=== PATIENT | male | born 1960 | race Two or more races ===

== ENCOUNTER 2020-09-13 10:13 | Inpatient (IN) | payer OTHER ==
[~2020-09-13] VITALS: Ht 175.3 cm; Wt 83.5 kg
[2020-09-13] MEDS: ASCORBIC ACID 500 MG TAB PO SCH (09:00)
[2020-09-13] MEDS: ATORVASTATIN 20 MG TAB PO SCH (09:00)
[2020-09-13] MEDS: ASPIRIN 81MG ENTERIC TABLET PO SCH (09:00)
[2020-09-13] MEDS: MULTIVITAMINS/MINERALS THERAP 1 TAB PO SCH (09:00)
[2020-09-13] MEDS: VITAMIN D 1,000 INTERNATIONAL UNITS TABLET PO SCH (09:00)
[2020-09-13] MEDS: ACYCLOVIR 200 MG CAPSULE PO SCH (09:00)
[2020-09-13] MEDS ORDERED: ACYC1CAP20 PO (10:45)
[2020-09-13] MEDS ORDERED: ATOR1TAB21 PO (10:45)
[2020-09-13] MEDS ORDERED: ASPI81TA26 PO (10:45)
[2020-09-13] MEDS ORDERED: IBUPROFEN 600MG TAB PO ONE (11:10)
[2020-09-13] MEDS ORDERED: NS 1,000 ML IV ONE ×2 (11:15→13:10)
[2020-09-13 12:03] LABS: BASO % 0.2 % (0.0-1.0); EOS % 0.2 % (0.0-3.0); HEMATOCRIT 47.2 % (42.0-52.0); HEMOGLOBIN 15.9 g/dl (13.5-17.5); LYMPH # 0.5 10^3/uL (1.5-5.0); LYMPH % 2.8 % (24.0-44.0); MEAN CORPUSCULAR HEMOGLOBIN 31.3 pg (27.0-33.0); MEAN CORPUSCULAR HGB CONC 33.7 g/dl (32.0-36.5); MEAN CORPUSCULAR VOLUME 92.9 fl (80.0-96.0); MONO # 1.2 10^3/uL (0.0-0.8); MONO % 6.5 % (2.0-8.0); NEUTROPHILS # 16.6 10^3/uL (1.5-8.5); NEUTROPHILS % 89.8 % (36.0-66.0); PLATELET COUNT, AUTOMATED 205 10^3/uL (150-450); RED BLOOD COUNT 5.08 10^6/uL (4.30-6.10); WHITE BLOOD COUNT 18.4 10^3/uL (4.0-10.0)
[2020-09-13 12:25] LABS: ALBUMIN 3.6 GM/DL (3.2-5.2); ALT/SGPT 30 U/L (12-78); BILIRUBIN,DIRECT 0.5 MG/DL (0.0-0.2); BILIRUBIN,TOTAL 1.2 MG/DL (0.2-1.0); LIPASE 115 U/L (73-393)
[2020-09-13] MEDS ORDERED: cefTRIAXone SOD 2 GM in D5W MINI-BAG PLUS 50 ML IV ONE (13:20)
--- NOTE | 2020-09-13 13:42 | REP ---
INDICATION: cough/ fever COMPARISON: None. TECHNIQUE: PA/Lateral FINDINGS: Lungs: Clear, no infiltrate. Heart: Normal in size. Mediastinum: Mediastinal silhouette unremarkable. Pleural angles: Unremarkable.. Bones and soft tissues: Unremarkable. IMPRESSION: No acute pulmonary disease. <Electronically signed by Jaziel Whitman > 09/13/20 [id number]
--- NOTE | 2020-09-13 14:43 | REP ---
INDICATION: abnormal liver enzymes. COMPARISON: None. TECHNIQUE: Real-time sonographic evaluation of right upper quadrant performed. FINDINGS: The gallbladder demonstrates no evidence of intraluminal sludge or calculi, wall thickening or pericholecystic fluid. There is no intrahepatic or extrahepatic biliary dilatation, common bile duct measures 4 mm in maximum diameter. There is diffuse heterogeneous increased echotexture of the liver compatible with diffuse fibrofatty infiltration. Pancreas is not optimally visualized due to overlying bowel gas, particularly in the region of the pancreatic tail, but the visualized portions are grossly unremarkable. The right kidney demonstrates no hydronephrosis, with a normal size of 12.3 cm in length. There is a cyst in the lower pole the right kidney 5 mm in diameter.No free fluid is seen. IMPRESSION: Diffuse fibrofatty infiltration of the liver. Subcentimeter cyst right kidney. Otherwise negative right upper quadrant ultrasound. <Electronically signed by Jaziel Whitman > 09/13/20 1973
[2020-09-13 14:45] LABS: CPK CREATINE PHOSPHOKINASE 125 U/L (39-308)
[2020-09-13] MEDS ORDERED: ACETAMINOPHEN 325 MG TAB PO ONE (15:05)
[2020-09-13 15:57] LABS: HEPATITIS B SURFACE ANTIGEN NEGATIVE (NEGATIVE)
[2020-09-13] MEDS ORDERED: VITA500C24 PO (16:07)
[2020-09-13] MEDS ORDERED: VITMTA PO (16:07)
[2020-09-13] MEDS ORDERED: OMEG10002 PO (16:07)
[2020-09-13] MEDS ORDERED: D31000TA2 PO (16:07)
[2020-09-13] MEDS ORDERED: ACYC1TAB PO (16:07)
[2020-09-13 16:24] LABS: HEPATITIS B CORE ANTIBODY IGM NEGATIVE (NEGATIVE); HEPATITIS C VIRUS ABY INDEX < 0.0 INDEX (<0.8)
[2020-09-13 16:27] LABS: HEPATITIS A ANTIBODY IGM NEGATIVE (NEGATIVE)
[2020-09-13] MEDS ORDERED: MAALOX 30 ML SUSP *UDC PO PRN (17:30)
[2020-09-13] MEDS ORDERED: MOM 30ML SUSPENSION UDC PO PRN (17:30)
[2020-09-13 18:58] LABS: MONO SCRN NEGATIVE (NEGATIVE)
--- NOTE | 2020-09-13 19:08 | REPVR ---
PROCEDURE INFORMATION: Exam: CT Abdomen And Pelvis Without Contrast Exam date and time: 09/13/2020 5:40 PM Age: 60 years old Clinical indication: Fever; Additional info: Fever, dry cough TECHNIQUE: Imaging protocol: Computed tomography of the abdomen and pelvis without contrast. Radiation optimization: All CT scans at this facility use at least one of these dose optimization techniques: automated exposure control; mA and/or kV adjustment per patient size (includes targeted exams where dose is matched to clinical indication); or iterative reconstruction. COMPARISON: GALLBLADDER US 09/13/2020 2:21 PM FINDINGS: Lungs: Semi-solid parenchymal infiltrates in the right middle, right and left lower lobes. Findings consistent with multifocal pneumonitis of any etiology. Liver: Normal. No mass. Gallbladder and bile ducts: Normal. No calcified stones. No ductal dilation. Pancreas: Normal. No ductal dilation. Spleen: Normal. No splenomegaly. Adrenal glands: There is bilateral adrenal hyperplasia. Kidneys and ureters: Inflammatory changes demonstrated in both perinephric spaces, a finding which may be chronic. Clinical correlation to exclude acute and inflammation/infection suggested. Stomach and bowel: Mild diverticulosis is present in the distal colon. No diverticulitis. Appendix: No evidence of appendicitis. Intraperitoneal space: Unremarkable. No free air. No significant fluid collection. Vasculature: Unremarkable. No abdominal aortic aneurysm. Lymph nodes: Unremarkable. No enlarged lymph nodes. Urinary bladder: Unremarkable as visualized. Reproductive: The prostate gland demonstrates moderate hyperplasia. Bones/joints: Mild central spinal stenosis L3-L4, [id number] central spinal stenosis L4-L5. Bulging annulus L5-S1 without neural compromise. Soft tissues: Small left inguinal hernia with surrounding inflammation. Clinical correlation to exclude incarceration suggested. IMPRESSION: 1. Semi-solid parenchymal infiltrates in the right middle, right and left lower lobes. Findings consistent with multifocal pneumonitis of any etiology. 2. There is bilateral adrenal hyperplasia. 3. Inflammatory changes demonstrated in both perinephric spaces, a finding which may be chronic. Clinical correlation to exclude acute and inflammation/infection suggested. 4. Moderate prostatic hyperplasia. 5. Mild diverticulosis is present in the distal colon. No diverticulitis. 6. Small left inguinal hernia with surrounding inflammation. Clinical correlation to exclude incarceration suggested. Electronically signed by: Tio Rajput On 09/13/2020 19:07:45 PM
--- NOTE | 2020-09-13 19:13 | REPVR ---
PROCEDURE INFORMATION: Exam: CT Chest Without Contrast; Diagnostic Exam date and time: 09/13/2020 5:40 PM Age: 60 years old Clinical indication: Cough and fever; Additional info: Fever, dry cough TECHNIQUE: Imaging protocol: Diagnostic computed tomography of the chest without contrast. Radiation optimization: All CT scans at this facility use at least one of these dose optimization techniques: automated exposure control; mA and/or kV adjustment per patient size (includes targeted exams where dose is matched to clinical indication); or iterative reconstruction. COMPARISON: PA Chest, 2 view PA, Lat 09/13/2020 1:18 PM FINDINGS: Lungs: Semi-solid and solid parenchymal opacities demonstrated in the central part of the right middle lobe, medial basilar segment and posterior segments of the right lower lobe, posteromedial basal segments of the left lower lobe. Findings most consistent with multifocal pneumonitis. Remaining lungs appear clear. Pleural spaces: Mild pleural thickening both lung bases. Heart: Unremarkable. No cardiomegaly. No pericardial effusion. Aorta: Unremarkable. No aortic aneurysm. Lymph nodes: Unremarkable. No enlarged lymph nodes. Bones/joints: The spine demonstrates mild degenerative changes. Soft tissues: Unremarkable. IMPRESSION: Semi-solid and solid parenchymal opacities demonstrated in the central part of the right middle lobe, medial basilar segment and posterior segments of the right lower lobe, posteromedial basal segments of the left lower lobe. Findings most consistent with multifocal pneumonitis. Electronically signed by: Tio Rajput On 09/13/2020 19:12:27 PM
--- NOTE | 2020-09-13 21:18 | HPEPDOC ---
[facility] Medical History & Physical Date of Admission Sep 13, 2020 Date of Service: Sep 13, 2020 Attending Physician: NOAH HILL MD History and Physical CHIEF COMPLAINT: Fever, malaise, poor oral intake HISTORY OF PRESENT ILLNESS: Parminder is a pleasant relatively healthy 60yo male w/ notable PMHx of dyslipidemia, herpes simplex virus on daily valacyclovir, chronic lumbago with spondylosis, farsightedness, and recent bilateral great toe onychomycosis, who presented to the [facility] ED on 09/13/2020 with a chief complaint of fever over the past 3 days with associated malaise, night sweats, chills, intermittent headache, and overall poor oral intake. Patient reports his symptoms began duri ng the overnight of Sunday-Sunday (09/10 into 09/11) when his girlfriend reported he was "burning up" overnight while she slept next to him. He felt a little bit tired during the morning on Sunday and by noon felt "beat" with "no energy." He got into bed and tried to sleep. Around 7 PM on Sunday he took two, 200 mg tablets of Aleve. During the overnight of Sunday into Sunday, he had significant night sweats and had a home oral temperature of 102.5. Repeat temperature improved to 98.6. As the overnight continued into the white washer piler, a repeat temperature again was increased at 1-1.6. 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 During the afternoon he tried to eat some salad but really had no significant appetite and did not eat much. This morning, he called his [facility] clinic nurse who advised he to present to the ED. Patient denies any recent significant change in his medication regimen, sick contacts, travel other then to [place], and has no pets. Patient reports earlier this month (around 08/30/2020) seeing [facility] for some upper abdominal discomfort that moved superiorly into the chest. He was given 5 days worth of cetirizine and told to take Tums after meals which he said seemed to help things a bit. Other than that, patient denies any recent illnesses. Of relevant note, the patient reports that on Sunday and Sunday of last week he was working underneath a mobile home as part of his job responsibilities without any mask and was crawling on dry dirt. He also on Sunday was involved in digging a ditch with both [place] and [place]. 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 For the past 17 years he has worked for his own company called [employer] and over the course of those 17 years has only worked in two new homes; as such, he routinely works in older homes and could be exposed to some noxious materials as a result. He is a former member of [employer] having been in service for 4 years and serving in [employer] [facility] [place]. As far as relevant sexual history, patient is heterosexual in a committed relationship with his girlfriend. He denies any sexual activity with men. Upon presentation the ED, patient's temperature was 102.8 orally and he was given 600 mg of ibuprofen. Adjust after 2 PM, it was measured again at 101 and he was given a dose of Tylenol. In addition, patient had a white count of 18.4 with a left shift (neutrophil percentage of 89%) with total and direct hyperbilirubinemia (T bili 1.2, D bili 0.5). Liver enzymes were unremarkable, as was a urine analysis, and hepatitis panel was negative for hep B or hep C. As far as imaging, the ED provider ordered a right upper quadrant ultrasound in the setting of the elevated bilirubin which revealed fatty liver. A chest x-ray was done and was unremarkable for any acute process. Patient was given both Tylenol and ibuprofen in the ED as well as 1 dose of ceftriaxone and IV fluids. Patient was subsequently admitted under the care of the hospitalist service to the medical surgical floor primarily for work-up of fever with unknown etiology, leukocytosis and positive SIRS criteria with unknown source. Patient verbally confirms in the ED that he is full code. Patient also states he would like any updates to be first communicated to his girlfriend, Nurys Gaxiola ([phone]). 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 He has a girlfriend who lives nearby. He has an adult daughter who turned 37 years old next month and has 2 grandchildren. He is a former member of the [employer], having served in [employer]. Patient reports trying cigarettes in seventh grade otherwise has not used any tobacco products his entire life. Patient reports heavy alcohol use when he was younger with recent weekly (mostly on Fridays) alcohol consumption in the form of beer, but patient stopped drinking alcohol of any kind in January 2020. Patient denies any current or former illegal drug use including IV drug use. FAMILY HISTORY: Father: when patient was 17 years old; patient knows very little about father's medical history Mother: Living; unfortunately patient and his mother not in regular contact so he does not know much about her medical history either. Patient has an older sister with a history of cholecystitis; also has another sister with no known remarkable medical history Patient has 3 younger brothers whom he says only have had orthopedic/MSK issues related to sports injuries Patient reports his adult daughter is relatively healthy with no significant medical issues ALLERGIES: Please see below. REVIEW OF SYSTEMS: CONSTITUTIONAL: Ports general malaise and feeling unwell with fevers, chills, and night sweats as discussed in HPI. Patient denies any recent unintentional change in weight. HEENT: Patient reports difficulty seeing up close without reading glasses. He denies any blurry vision or double vision. CARDIOVASCULAR: Denies any chest pain, chest pressure, or palpitations RESPIRATORY: Reports dry cough. Denies any pleuritic chest pain or dyspnea. GASTROINTESTINAL: Denies any abdominal pain, nausea, vomiting, diarrhea, constipation, blood in stool. GENITOURINARY: Denies any dysuria or hematuria. SKIN: Reports he has been clammy and has had night sweats MUSCULOSKELETAL: Reports general myalgias but nothing specific. Denies any arthralgias. NEUROLOGICAL: Reports some issues with clear focus over the past few days. Denies any numbness or paresthesias of extremities ENDOCRINE: Reports chills/cold intolerance as discussed in HPI. HEMATOLOGIC: Reports some mild easy bleeding since he began taking a daily 81 aspirin LYMPHATIC: Denies any new lumps or bumps. HOME MEDICATIONS: Please see below. PHYSICAL EXAMINATION: VITAL SIGNS: Please see below. GENERAL APPEARANCE: Pleasant male lying upright in bed. No acute distress. HEENT: Normocephalic, atraumatic. Patient is balding. Noninjected, anicteric sclera. No significant conjunctival pallor. PERRLA. Oral cavity: No pharyngeal erythema or exudate appreciated. Moist mucous membranes. Patient has some visible/dental fillings. Neck: Supple, trachea midline. No cervical or supraclavicular lymphadenopathy appreciated. No JVD appreciated. Lymph Nodes: There was one palpable left inguinal lymph node otherwise no right inguinal or bilateral axillary lymphadenopathy appreciated. CARDIOVASCULAR: Regular rate, regular rhythm although clinically there were some intermittent appreciated possible dropped beats. No murmurs or rubs were apprec iated. LUNGS: There was some mild bibasilar crackles, otherwise no other adventitious breath sounds were appreciated. Symmetric chest expansion. No accessory muscle use. Breathing room air and speaking full sentences. ABDOMEN: Soft, nontender nondistended. Normoactive bowel sounds throughout. No hepatosplenomegaly appreciated. Negative Bowers sign. No guarding or rigidity appreciated. No CVA tenderness. There is no presacral pitting edema. Skin: Skin is warm and clammy and scattered areas over back and forehead EXTREMITIES: Bilateral lower extremities are free of pitting edema. There are 2+ radial pulses bilaterally. No signs of clubbing or cyanosis. NEUROLOGICAL: No gross focal neurologic deficits appreciated. Nondysarthric speech. PSYCHIATRIC: Mood and affect appear appropriate. LABORATORY DATA: Please see below. IMAGIN view (posterior anterior, lateral) Chest x-ray, 09/13/20 FINDINGS: Lungs: Clear, no infiltrate. Heart: Normal in size. Mediastinum: Mediastinal silhouette unremarkable. Pleural angles: Unremarkable.. Bones and soft tissues: Unremarkable. IMPRESSION: No acute pulmonary disease. Right upper quadrant/gallbladder ultrasound, 09/13/20 FINDINGS: The gallbladder demonstrates no evidence of intraluminal sludge or calculi, wall thickening or pericholecystic fluid. There is no intrahepatic or extrahepatic biliary dilatation, common bile duct measures 4 mm in maximum diameter. There is diffuse heterogeneous increased echotexture of the liver compatible with diffuse fibrofatty infiltration. Pancreas is not optimally visualized due to overlying bowel gas, particularly in the region of the pancreatic tail, but the visualized portions are grossly unremarkable. The right kidney demonstrates no hydronephrosis, with a normal size of 12.3 cm in length. There is a cyst in the lower pole the right kidney 5 mm in diameter. No free fluid is seen. IMPRESSION: Diffuse fibrofatty infiltration of the liver. Subcentimeter cyst right kidney. Otherwise negative right upper quadrant ultrasound. MICROBIOLOGY: Please see below. ASSESSMENT & PLAN: This is a 60yo male w/ notable h/o dld, HSV on daily valacyclovir, chronic lumbago with spondylosis, farsightedness, and recent bilateral great toe and onychomycosis, who presented to ED on 09/13/2020 with chief complaint of fever for the past 3 days with associated chills, dry cough, night sweats, poor oral intake, and intermittent headache. He was found to have positive SIRS criteria with a white count of 18 and initial temperature of 102.8 with no clear source. He was subsequently admitted primarily for work-up of fever with unknown etiology. #Fever of unknown etiology -Patient has had fevers for the past 3 days dating back to the overnight of Sunday into Sunday () -Presenting temperature in the ED was 1-2.8. On recheck after ibuprofen temperature was still elevated at 101 and patient was given Tylenol. -Lyme serology, CMV, EBV, histoplasma, cryptococcus, heterophile antibody, interferon gamma release assay all ordered. -Chest x-ray was unremarkable in the ED. 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, sanding working with sheet rock, etc., there may be an element of pneumonitis) -Systemic inflammatory markers (ESR and CRP) and lactate dehydrogenase (LDH) ordered -Blood cultures were ordered in the ED and are pending at this time -Sputum culture ordered -Procalcitonin ordered -HIV serology ordered -Urinalysis was unremarkable in the ED -Hepatitis B and hepatitis C serology was unremarkable -At this time due to the significant leukocytosis with left shift, we believe this is an infectious etiology so holding off on working up possible autoimmune causes at this time with no personal patient history nor family history -There is a suspicion that patient's exposures through work may be the source of the infectious process. As discussed extensively in the HPI, patient has had a recent exposure without a mask to soil underneath mobile homes as well as a [place] ditch that he dug. -Infectious disease service has been consulted. -Hospitalist service is appreciated for the collaborative care and insights provided by Dr. Patel. #Positive SIRS criteria with unknown infectious source at time of admission -Initial presenting temperature 102.8 with WBC 18.4 and left shift (89% neutrophils) -Patient is status post 1 dose of ceftriaxone and IV fluid administration in the ED -Please see items under assessment above for more details. #Direct hyperbilirubinemia -Total bilirubin 1.2 with direct bilirubin of 0.5 upon admission -Right upper quadrant ultrasound revealed fatty liver -We will continue to follow metabolic panels #Fatty liver on ultrasound -May be because of patient's direct hyperbilirubinemia although there were no elevated liver enzymes #Hypokalemia -Serum potassium upon admission was 3.4 -40 mEq KCl tablet x1 ordered -Repeat metabolic panel with magnesium level tomorrow #History of herpes simplex virus -Patient reportedly was diagnosed roughly 12 years ago with genital vesicular lesions -Patient takes daily valacyclovir which was continued upon admission #History of dyslipidemia -Patient's home atorvastatin continued upon admission #Patient on daily antiplatelet -Patient takes daily 81 mg aspirin -Patient has no history of CVA, TIA, PCI, CABG, PVD, heart or peripheral stents and he is nondiabetic; therefore this is something to revisit upon outpat ient whether daily aspirin is warranted #Farsightedness -Patient uses reading glasses #Chronic lumbago with spondylosis -Patient follows with a chiropractor as outpatient every couple months #DVT prophylaxis: sc CODE STATUS: Patient is full code. personal chef: Patient reported his girlfriend Nurys Gaxiola ([phone]) his first person to contact. Disposition: Patient will be admitted to the medical surgical floor for further work-up of fever of unknown etiology; infectious disease service has been consulted. Vital Signs Vital Signs Date Time Temp Pulse Resp B/P (MAP) Pulse Ox O2 Delivery O2 Flow Rate FiO2 09/13/20 20:40 98.9 85 18 124/62 (82) 93 Room Air Laboratory Data Labs 24H Laboratory Tests 2 09/13/20 11:48: Immature Granulocyte % (Auto) 0.5, Neutrophils (%) (Auto) 89.8H, Lymphocytes (%) (Auto) 2.8L, Monocytes (%) (Auto) 6.5, Eosinophils (%) (Auto) 0.2, Basophils (%) (Auto) 0.2, Neutrophils # (Auto) 16.6H, Lymphocytes # (Auto) 0.5L, Monocytes # (Auto) 1.2H, Eosinophils # (Auto) 0.0, Basophils # (Auto) 0.0, Nucleated Red Blood Cells % (auto) 0.0, Lactic Acid Level 1.6, Total Bilirubin 1.2H, Direct Bilirubin 0.5H, Aspartate Amino Transf (AST/SGOT) 21, Alanine Aminotransferase (ALT/SGPT) 30, Alkaline Phosphatase 77, Total Creatine Kinase 125, Total Protein 7.0, Albumin 3.6, Albumin/Globulin Ratio 1.1, Lipase 115, Hepatitis A IgM Antibody NEGATIVE, Hepatitis B Surface Antigen NEGATIVE, Hepatitis B Core IgM Antibody NEGATIVE, Hepatitis C Antibody Index < 0.0 09/13/20 11:57: Urine Color TRELL, Urine Appearance HAZY, Urine pH 5.0, Urine Specific [place] 1.027, Urine Protein 2+H, Urine Glucose (UA) 3+H, Urine Ketones 1+H, Urine Blood NEGATIVE, Urine Nitrite NEGATIVE, Urine Bilirubin NEGATIVE, Urine Urobilinogen 2.0H, Urine Leukocyte Esterase NEGATIVE, Urine WBC (Auto) 2, Urine RBC (Auto) 1, Urine Hyaline Casts (Auto) 0, Urine Bacteria (Auto) NEGATIVE, Urine Squamous Epithelial Cells 0, Urine Mucus (Auto) LARGE, Urine Sperm (Auto) 09/13/20 11:59: POC Glucose (Misc Panel) 127H, POC Sodium (Misc Panel) 139, POC Potassium (Misc Panel) 3.4L, POC Chloride (Misc Panel) 95L, POC Total CO2 (Misc Panel) 28.0H, POC Blood Urea Nitrogen (Misc Panel 21, POC Ionized Calcium (Misc Panel) 4.8, POC Creatinine (Misc Panel) 1.1, POC Hematocrit (Misc Panel) 48.0 09/13/20 17:48: Differential Slide Review Report, Peripheral Blood Smear Path Consult PERIPHERAL SMEAR, Erythrocyte Sedimentation Rate 44H, Lactate Dehydrogenase 284H, C- Reactive Protein, Quantitative 10.80H, Monoscreen NEGATIVE, HIV Antigen/Antibody Combo Qual NEGATIVE 09/13/20 19:50: CBC/BMP Laboratory Tests 09/13/20 11:48 Microbiology Microbiology 09/13/20 Blood Culture, Received Pending 09/13/20 Blood Culture, Received Pending 09/13/20 Respiratory Virus Panel (PCR) ([facility]) - Final, Complete Home Medications Scheduled Acyclovir (Acyclovir) 400 Mg Tablet, 400 MG PO DAILY Ascorbic Acid (Vitamin C) 500 Mg Capsule, 500 MG PO DAILY Aspirin (Aspirin EC) 81 Mg Tablet.dr, 81 MG PO DAILY Atorvastatin Calcium (Atorvastatin Calcium) 20 Mg Tablet, 20 MG PO DAILY Cholecalciferol (Vitamin D3) (Vitamin D3) 1,000 Unit Tablet, 1,000 UNITS PO D AILY Multivitamins (Thera M Plus Tablet) 1 Each Tablet, 1 TAB PO DAILY [place]-3/Dha/Epa/Fish Oil (Fish Oil 1,000 mg Softgel) 1 Each Capsule, 1 CAP PO BID Allergies Coded Allergies: No Known Allergies (Unverified , 09/13/20) GME ATTESTATION My faculty preceptor for this patient encounter was physically present during the encounter and was fully available. All aspects of the patient interview, e xamination, medical decision making process, and medical care plan development were reviewed and approved by the faculty preceptor. The faculty preceptor is aware and concurs with the plan as stated in the body of this note and will attest to such by his/her cosignature. 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 A-FIB/CHADSVASC A-FIB History Current/History of A-Fib/PAF?: No Current PO Anticoag Therapy: No JATIN DELGADO D.O. Sep 13, 2020 21:17 NOAH HILL MD Sep 14, 2020 11:33
[2020-09-13] MEDS ORDERED: POTASSIUM CHLORIDE 10 MEQ SR TABLET PO ONE (22:30)
[2020-09-13 23:36] VITALS: BP 112/59
[2020-09-14] MEDS ORDERED: ONDANSETRON 4MG/2ML VIAL IV PRN (02:35)
[2020-09-14 06:01] VITALS: BP 120/64
[2020-09-14] MEDS: ACETAMINOPHEN TAB 650MG DOSE (2X325MG) PO PRN ×4 (06:05→19:00)
[2020-09-14 06:33] LABS: BASO % 0.1 % (0.0-1.0); HEMOGLOBIN 14.5 g/dl (13.5-17.5); LYMPH # 0.5 10^3/uL (1.5-5.0); LYMPH % 3.6 % (24.0-44.0); MEAN CORPUSCULAR HEMOGLOBIN 31.2 pg (27.0-33.0); MEAN CORPUSCULAR HGB CONC 33.7 g/dl (32.0-36.5); MEAN CORPUSCULAR VOLUME 92.5 fl (80.0-96.0); MONO # 0.8 10^3/uL (0.0-0.8); MONO % 5.3 % (2.0-8.0); NEUTROPHILS % 90.5 % (36.0-66.0); PLATELET COUNT, AUTOMATED 211 10^3/uL (150-450); RED BLOOD COUNT 4.65 10^6/uL (4.30-6.10); WHITE BLOOD COUNT 14.3 10^3/uL (4.0-10.0)
[2020-09-14 06:58] LABS: ALT/SGPT 33 U/L (12-78); BILIRUBIN,TOTAL 0.9 MG/DL (0.2-1.0); BLOOD UREA NITROGEN 16 MG/DL (7-18); CALCIUM LEVEL 8.1 MG/DL (8.5-10.1); CARBON DIOXIDE LEVEL 29 MEQ/L (21-32); CHLORIDE LEVEL 104 MEQ/L (98-107); CREATININE FOR GFR 1.07 MG/DL (0.70-1.30); GLOMERULAR FILTRATION RATE > 60.0 (>56); GLUCOSE, FASTING 112 MG/DL (70-100); MAGNESIUM LEVEL 1.9 MG/DL (1.8-2.4); POTASSIUM SERUM 4.2 MEQ/L (3.5-5.1); SODIUM LEVEL 138 MEQ/L (136-145); TOTAL PROTEIN 6.1 GM/DL (6.4-8.2)
[2020-09-14] MEDS: VITAMIN D 1,000 INTERNATIONAL UNITS TABLET PO SCH (08:52)
[2020-09-14] MEDS: ATORVASTATIN 20 MG TAB PO SCH (08:52)
[2020-09-14] MEDS: ACYCLOVIR 200 MG CAPSULE PO SCH (08:52)
[2020-09-14] MEDS: ENOXAPARIN 40MG/0.4ML SYRINGE (J1650 PER 10MG) SC SCH (08:52)
[2020-09-14] MEDS: MULTIVITAMINS/MINERALS THERAP 1 TAB PO SCH (08:52)
[2020-09-14] MEDS: ASCORBIC ACID 500 MG TAB PO SCH (08:52)
[2020-09-14] MEDS: ASPIRIN 81MG ENTERIC TABLET PO SCH (08:52)
[2020-09-14 09:00] VITALS: BP 118/64
[2020-09-14] MEDS ORDERED: LevoFLOXacin IV 750 MG in IV 1 EA IV SCH (12:30)
[2020-09-14] MEDS: IBUPROFEN 600MG TAB PO PRN ×2 (12:43→19:01)
[2020-09-14] MEDS: LevoFLOXacin 750 MG TABLET PO SCH (12:54)
[2020-09-14 14:00] VITALS: BP 114/81
[2020-09-14] MEDS: CALCIUM CARBONATE 500 MG CHEW U/D PO PRN ×2 (17:23→21:56)
--- NOTE | 2020-09-14 19:10 | IPNPDOC ---
Date Seen The patient was seen on 09/14/20. Progress Note SUBJECTIVE: Parminder was seen and examined this morning by the hospitalist service while lying upright in bed. He reports 4 episodes of diarrhea since being admitted from the ED yesterday afternoon. He also had one episode of emesis and the overnight hospitalist team added as needed Zofran which helped. He reports no current nausea but does feel as though food is "heavy" in his epigastric region. He reports some mild sweats overnight but not as intense as the past few days. He continues to have fever that was most prominent after midnight. His nonproductive cough is still present but is slightly less frequent compared to previous days. He denies any current or overnight chest pain, palpitations, shortness of breath, pleuritic chest pain, abdominal pain, blood in the stool, dysuria, or hematuria. OBJECTIVE PHYSICAL EXAMINATION: VITAL SIGNS: Please see below. GENERAL APPEARANCE: Pleasant male lying upright in bed. No acute distress. HEENT: Normocephalic, atraumatic. Noninjected, anicteric sclera. Some slight diaphoresis of the forehead. Oral cavity: No pharyngeal erythema or exudate appreciated. Moist mucous membranes. Dental fillings present. Neck: Supple, trachea midline. No cervical or supraclavicular lymphadenopathy appreciated. No JVD appreciated. CARDIOVASCULAR: Regular rate, regular rhythm although clinically there were some intermittent appreciated possible dropped beats per second consecutive day. No murmurs or rubs were appreciated. LUNGS: There remain moderate inspiratory crackles present bilaterally of mid and lower lung portions posteriorly that appear unchanged from yesterday's exam. Symmetric chest expansion. No accessory muscle use. Breathing room air and speaking full sentences. ABDOMEN: Soft, nontender nondistended. Normoactive bowel sounds throughout. No guarding or rigidity appreciated. No CVA tenderness. Skin: Skin is warm and clammy and scattered areas over back and forehead EXTREMITIES: Bilateral lower extremities are free of pitting edema. There are 2+ radial pulses bilaterally. No signs of clubbing or cyanosis. NEUROLOGICAL: No gross focal neurologic deficits appreciated. Nondysarthric speech. PSYCHIATRIC: Mood and affect appear appropriate. LABORATORY DATA, IMAGING STUDIES, MICROBIOLOGY: Please see below. ASSESSMENT AND PLAN: This is a 60yo male w/ notable h/o dld, HSV on daily valacyclovir, chronic lumbago with spondylosis, farsightedness, and recent bilateral great toe and onychomycosis, who presented to ED on 09/13/2020 with chief complaint of fever for the past 3 days with associated chills, dry cough, night sweats, poor oral intake, and intermittent headache. He was found to have positive SIRS criteria with a white count of 18 and initial temperature of 102.8 with no clear source. He was subsequently admitted primarily for work-up of fever with unknown etiology. #Fever of unknown etiology -Patient has had fevers for 3 days over this past week dating back to the overnight of Sunday into Sunday () -Temperature was relatively well controlled late yesterday afternoon and evening but patient spiked again up to 102.8 this morning. -Lyme serology, CMV, EBV, histoplasma, cryptococcus, heterophile antibody, interferon gamma release assay all ordered. -Chest x-ray was unremarkable in the ED. -To further work-up possible source of fever, both a CT chest and CT abd omen pelvis were ordered upon admission. Patient did have reactive multifocal pneumonitis signs on CT chest with inflammation of perinephric spaces and inflammation of left Inguinal hernia -Systemic inflammatory markers (ESR and CRP) and LDH ordered yesterday were both elevated: ESR 44, CRP 13; LDH was also elevated at 284 -Blood cultures were ordered in the ED and are pending at this time -Sputum culture ordered and pending -Aspiratory viral panel was negative -Procalcitonin ordered, still pending this morning -HIV serology was negative -Urinalysis was unremarkable in the ED -Hepatitis B and hepatitis C serology was unremarkable -At this time due to the significant leukocytosis with left shift, we believe this is an infectious etiology so holding off on working up possible autoimmune causes at this time with no personal patient history nor family history -There is a suspicion that patient's exposures through work may be the source of the infectious process. As discussed extensively in the HPI, patient has had a recent exposure without a mask to soil underneath mobile homes as well as a limestone renea ditch that he dug. -Infectious disease service has been consulted. -Hospitalist service is appreciated for the collaborative care and insights provided by Dr. Matthews. #Fever and leukocytosis -Initial presenting temperature 102.8 with WBC 18.4 and left shift (89% neutrophils) -WBC improved on 09/14/20 to 14 (was 18 on admission); left shift remains -Patient is status post 1 dose of ceftriaxone and IV fluid administration in the ED -Please see items under assessment above for more details. #Direct hyperbilirubinemia -Total bilirubin 1.2 with direct bilirubin of 0.5 upon admission -Right upper quadrant ultrasound revealed fatty liver -We will continue to follow metabolic panels #Overnight nausea and emesis -Patient had episode of nonbloody emesis during the overnight and overnight team added as needed Zofran. #Fatty liver on ultrasound -May be because of patient's direct hyperbilirubinemia although there were no elevated liver enzymes #Hypokalemia -Serum potassium upon admission was 3.4 -40 mEq KCl tablet x1 ordered -Repeat metabolic panel with magnesium level tomorrow #History of herpes simplex virus -Patient reportedly was diagnosed roughly 12 years ago with genital vesicular lesions -Patient takes daily valacyclovir which was continued upon admission #History of dyslipidemia -Patient's home atorvastatin continued upon admission #Patient on daily antiplatelet -Patient takes daily 81 mg aspirin -Patient has no history of CVA, TIA, PCI, CABG, PVD, heart or peripheral stents and he is nondiabetic; therefore this is something to revisit upon outpatient whether daily aspirin is warranted #Farsightedness -Patient uses reading glasses #Chronic lumbago with spondylosis -Patient follows with a chiropractor as outpatient every couple months #DVT prophylaxis: sc CODE STATUS: Patient is full code. salesperson automobiles: Patient reported his girlfriend Nurys Gaxiola ([phone]) his first person to contact. Disposition: Continue further work-up to identify possible etiology of fever; infectious disease service has been consulted. GME ATTESTATION My faculty preceptor for this patient encounter was physically present during the encounter and was fully available. All aspects of the patient interview, examination, medical decision making process, and medical care plan development were reviewed and approved by the faculty preceptor. The faculty preceptor is aware and concurs with the plan as stated in the body of this note and will attest to such by his/her cosignature. ATTENDING NOTE I personally examined the patient and discussed findings, studies and plan as described by the resident physician above. VS, I&O, 24H, Fishbone Vital Signs/I&O Vital Signs Date Time Temp Pulse Resp B/P (MAP) Pulse Ox O2 Delivery O2 Flow Rate FiO2 09/14/20 17:32 98.8 09/14/20 14:00 80 18 114/81 (92) 98 Room Air I&O- Last 24 Hours up to 6 AM 09/14/20 06:00 Intake Total 2250 ml Output Total 500 ml Balance 1750 ml Laboratory Data 24H LABS Laboratory Tests 2 09/13/20 19:50: 09/14/20 06:04: Immature Granulocyte % (Auto) 0.5, Neutrophils (%) (Auto) 90.5H, Lymphocytes (%) (Auto) 3.6L, Monocytes (%) (Auto) 5.3, Eosinophils (%) (Auto) 0.0, Basophils (%) (Auto) 0.1, Neutrophils # (Auto) 13.0H, Lymphocytes # (Auto) 0.5L, Monocytes # (Auto) 0.8, Eosinophils # (Auto) 0.0, Basophils # (Auto) 0.0, Nucleated Red Blood Cells % (auto) 0.0, Anion Gap 5L, Glomerular Filtration Rate > 60.0, Calcium Level 8.1L, Magnesium Level 1.9, Total Bilirubin 0.9, Aspartate Amino Transf (AST/SGOT) 31, Alanine Aminotransferase (ALT/SGPT) 33, Alkaline Phosphatase 71, C-Reactive Protein, Quantitative 13.20H, Total Protein 6.1L, Albumin 3.0L, Albumin/Globulin Ratio 1.0 CBC/BMP Laboratory Tests 09/14/20 06:04 Microbiology Microbiology 09/14/20 Gastrointestinal Tract Panel (PCR) - Final, Complete 09/13/20 Blood Culture - Preliminary, Resulted No growth after 24 hours . All specim... 09/13/20 Blood Culture - Preliminary, Resulted No growth after 24 hours . All specim... 09/13/20 Respiratory Virus Panel (PCR) ([facility]) - Final, Complete JATIN DELGADO D.O. Sep 14, 2020 19:10 NOAH HILL MD Sep 14, 2020 23:50
--- NOTE | 2020-09-14 21:49 | CR ---
CONSULTATION DATE: 09/14/2020 CONSULTATION REQUESTED BY: Dr. Kassy Gallego REASON FOR CONSULTATION: Fever, dry cough and multifocal pneumonia. HISTORY OF PRESENT ILLNESS: Mr. George is a pleasant 60-year-old gentleman who was sick around September 21 with fever and mild headache. The patient also then developed a cough, which was mostly dry and nonproductive and night sweats. He was having some abdominal bloating, now he had some diarrhea and vomiting. The patient had fevers up to 104. He denied any shortness of breath or pleuritic chest pain. He denied any COVID exposure, but has not received his COVID vaccine. No sick contacts. His significant other is at the bedside and has not been sick. He works in construction, he owns his own business and was under a mobile home fixing some of the water pipes and he was crawling on dry dirt. Patient has been on Levofloxacin for the past 48 hours with no improvement. He also received I.V. Rocephin. He denies any tick bites or mosquito bites. Chest x-ray was negative, but CT chest showed multifocal pneumonitis. PAST MEDICAL HISTORY: Dyslipidemia, history of Herpes Simplex on Valtrex daily, chronic degenerative disc disease with spondylosis, foresightedness, bilateral onychomycosis of toes nails treated with 6 months of Terbinafine (discontinued August 22). PAST SURGICAL HISTORY: Right inguinal hernia repair 2015 at the [facility]. FAMILY HISTORY: Father when patient was 17; he does not know why. Otherwise no significant family history. SOCIAL HISTORY: Self employed as a contractor, working with electric and plumbing. He is [employer] and served in [employer]. No recent travel. He has a daughter and a significant other, they do not live together. He has not smoked. History of alcohol use as a teenager, but now he drinks socially. ALLERGIES: No known drug allergies. MEDICATIONS: 1. Aspirin 81 mg every 3 days. 2. Tums 1,000 mg p.o. every 4 hours p.r.n. 3. Ibuprofen 600 mg p.o. every 6 hours p.r.n. 4. Lovenox 40 mg subcutaneous daily. 5. Levofloxacin 750 mg p.o. daily. 6. Zofran p.r.n. 7. Tylenol p.r.n. 8. Multivitamin one tablet p.r.n. 9. Vitamin D 1,000 units daily. 10.Lipitor 20 mg p.o. daily. 11.Vitamin C 500 mg p.o. daily. 12.Acyclovir 400 mg p.o. daily. LABORATORY DATA: White count 18.4 yesterday and today 14.3, hemoglobin 14.5, hematocrit 43, platelets 211,000, 90% neutrophils, 4% lymphocytes, 5% monocytes. ESR 44. Sodium 133, potassium 4.2, chloride 104, bicarb 29, BUN 16, creatinine 1.07, glucose 112, calcium 8.1. Magnesium 1.9. Bilirubin 0.9, AST 31, ALT 33, alkaline phosphatase 71. LDH 284. CRP 10.8 up to 13.2. Albumin 3.0. Lyme serology is pending. Cryptococcus antigen antibody are pending. Histoplasma antigen antibody are pending. HIV negative. TB QuantiFERON goal pending. Hepatitis C pending. CMV DNA, EBV DNA pending. Blood cultures two sets were no growth after 24 hours. Respiratory panel was negative and GI panel was negative. REVIEW OF SYSTEMS: Patient had a mild headache, which is improved. No loss of taste. No runny nose or loss of smell. He had mild nausea and vomiting today with some diarrhea, some abdominal bloating, epigastric discomfort, which usually resolved with Tums. He has a dry cough, nonproductive. No shortness of breath. No upper or lower extremity weakness. No rashes. IMAGING: Chest CT, abdomen and pelvis showed multifocal pneumonitis, mild pleural thickening of both bases. No cardiomegaly. No aneurysm. No adenopathy. Opacities are in the right middle lobe, posterior segment of the right lower lobe and posterior medial segment of the left lower lobe. IMPRESSION: This is a 60-year-old gentleman with no significant past medical history, who presented with four days of fever, headache, nonproductive cough. He had mild leukocytosis with elevated inflammatory markers, procalcitonin is within normal. CT is suggestive of multifocal pneumonia, could be viral, could be atypical pathogens such as mycoplasma, Chlamydia or Legionnaire's disease, especially with his work in plumbing. Could be fungal etiology such as histoplasma Cryptococcus. Patient not hypoxic. At this time, I would not recommend treating empirically with antifungal. COVID-19 is still in the differential diagnosis. I would repeat a COVID test today. He did not receive his vaccine. PLAN: Aspergillus galactomanan was added to his blood work as well as a Fungitell assay. A histoplasma antigen antibody is pending. Continue with p.o. Levofloxacin 750 mg p.o. daily. Continue using Tylenol and Ibuprofen for fever alternating. Send a urine Legionnaire antigen and pneumococcal antigen. Patient does not need his workup to be finished as long as he is clinically stable, he can be discharged home with Levofloxacin and to follow-up in my office next week. IGLESIA
[2020-09-14 22:00] VITALS: BP 106/68
[2020-09-14 22:38] LABS: RSV AMPLIFICATION NEGATIVE (NEGATIVE)
[2020-09-15] VITALS: BP 107/67
[2020-09-15 06:00] VITALS: BP 124/70
[2020-09-15] MEDS: ACETAMINOPHEN TAB 650MG DOSE (2X325MG) PO PRN (06:06)
[2020-09-15] MEDS: LevoFLOXacin 750 MG TABLET PO SCH (06:06)
[2020-09-15] MEDS: IBUPROFEN 600MG TAB PO PRN (07:01)
[2020-09-15 07:19] LABS: BASO % 0.1 % (0.0-1.0); HEMATOCRIT 41.4 % (42.0-52.0); HEMOGLOBIN 14.1 g/dl (13.5-17.5); LYMPH # 0.4 10^3/uL (1.5-5.0); LYMPH % 3.4 % (24.0-44.0); MEAN CORPUSCULAR HEMOGLOBIN 31.1 pg (27.0-33.0); MEAN CORPUSCULAR HGB CONC 34.1 g/dl (32.0-36.5); MEAN CORPUSCULAR VOLUME 91.2 fl (80.0-96.0); MONO # 0.7 10^3/uL (0.0-0.8); MONO % 5.8 % (2.0-8.0); NEUTROPHILS # 10.9 10^3/uL (1.5-8.5); NEUTROPHILS % 90.2 % (36.0-66.0); PLATELET COUNT, AUTOMATED 222 10^3/uL (150-450); RED BLOOD COUNT 4.54 10^6/uL (4.30-6.10); WHITE BLOOD COUNT 12.1 10^3/uL (4.0-10.0)
[2020-09-15 07:36] LABS: ALBUMIN 2.5 GM/DL (3.2-5.2); ALT/SGPT 36 U/L (12-78); BILIRUBIN,TOTAL 0.7 MG/DL (0.2-1.0); BLOOD UREA NITROGEN 21 MG/DL (7-18); CALCIUM LEVEL 8.8 MG/DL (8.5-10.1); CARBON DIOXIDE LEVEL 25 MEQ/L (21-32); CHLORIDE LEVEL 105 MEQ/L (98-107); CREATININE FOR GFR 1.02 MG/DL (0.70-1.30); GLOMERULAR FILTRATION RATE > 60.0 (>56); GLUCOSE, FASTING 100 MG/DL (70-100); POTASSIUM SERUM 3.7 MEQ/L (3.5-5.1); SODIUM LEVEL 139 MEQ/L (136-145); TOTAL PROTEIN 5.7 GM/DL (6.4-8.2)
[2020-09-15] MEDS: ENOXAPARIN 40MG/0.4ML SYRINGE (J1650 PER 10MG) SC SCH (09:06)
[2020-09-15] MEDS: ACYCLOVIR 200 MG CAPSULE PO SCH (09:06)
[2020-09-15] MEDS: ATORVASTATIN 20 MG TAB PO SCH (09:06)
[2020-09-15] MEDS: MULTIVITAMINS/MINERALS THERAP 1 TAB PO SCH (09:06)
[2020-09-15] MEDS: VITAMIN D 1,000 INTERNATIONAL UNITS TABLET PO SCH (09:07)
[2020-09-15] MEDS: ASCORBIC ACID 500 MG TAB PO SCH (09:07)
[2020-09-15] MEDS ORDERED: LEVO750T13 PO (11:18)
--- NOTE | 2020-09-15 19:21 | DS.PDOC ---
Discharge Summary General Date of Admission Sep 13, 2020 at 15:34 Date of Discharge Tuesday, September 15, 2020 Attending Physician: NOAH HILL MD Specialist/Consultants Involve: Laura Matthews MD Discharge Summary PROCEDURES PERFORMED DURING STAY: None ADMITTING DIAGNOSES: -Fever of unknown etiology -Positive sirs criteria with unknown infectious source at time of admission -Direct hyperbilirubinemia -Fatty liver on ultrasound -Hypokalemia -History of herpes simplex virus -History of dyslipidemia -Farsightedness -Chronic lumbago with spondylosis DISCHARGE DIAGNOSES: -Fever of unknown etiology -Leukocytosis, improved -Multifocal lung opacities -Fatty liver on ultrasound -Moderate prostatic hyperplasia on imaging -Mild diverticulosis of distal colon on imaging -Small left inguinal hernia with surrounding inflammation -Hypokalemia, resolved -History of herpes simplex virus -History of dyslipidemia -Farsightedness -Chronic lumbago with lumbar spondylosis COMPLICATIONS/CHIEF COMPLAINT: Fever,Cough,Headache,Leukocytosis. HISTORY OF PRESENT ILLNESS: Parminder is a pleasant relatively healthy 60yo male w/ notable PMHx of dyslipidemia, herpes simplex virus on daily valacyclovir, chronic lumbago with spondylosis, farsightedness, and recent bilateral great toe onychomycosis, who presented to the [facility] ED on 09/13/2020 with a chief complaint of fever over the past 3 days with associated malaise, night sweats, chills, intermittent heada jaxson, and overall poor oral intake. Patient reports his symptoms began during the overnight of Sunday-Sunday (09/10 into 09/11) when his girlfriend reported he was "burning up" overnight while she slept next to him. He felt a little bit tired during the morning on Sunday and by noon felt "beat" with "no energy." He got into bed and tried to sleep. Around 7 PM on Sunday he took two, 200 mg tablets of Aleve. During the overnight of Sunday into Sunday, he had significant night sweats and had a home oral temperature of 102.5. Repeat temperature improved to 98.6. As the overnight continued into the restaurant crew person, a repeat temperature again was increased at 1-1.6. He is a self-employed contractor and was scheduled to work on Sunday which he did for a total of approximately 5 hours outside. During the afternoon he tried to eat some salad but really had no significant appetite and did not eat much. This morning, he called his [facility] clinic nurse who advised he to present to the ED. Patient denies any recent significant change in his medication regimen, sick contacts, travel other then to [place], and has no pets. Patient reports earlier this month (around 08/30/2020) [facility] for some upper abdominal discomfort that moved superiorly into the chest. He was given 5 days worth of cetirizine and told to take Tums after meals which he said seemed to help things a bit. Other than that, patient denies any recent illnesses. Of relevant note, the patient reports that on Sunday and Sunday of last week he was working underneath a mobile home as part of his job responsibilities without any mask and was crawling on dry dirt. He also on Sunday was involved in digging a ditch with both [place] and [place]. 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 For the past 17 years he has worked for his own company called [employer] and over the course of those 17 years has only worked in two new homes; as such, he routinely works in older homes and could be exposed to some noxious materials as a result. He is a former member of the [employer] having been in service for 4 years and serving in [employer] [facility]. As far as relevant sexual history, patient is heterosexual in a committed relationship with his girlfriend. He denies any sexual activity with men. Upon presentation the ED, patient's temperature was 102.8 orally and he was given 600 mg of ibuprofen. Adjust after 2 PM, it was measured again at 101 and he was given a dose of Tylenol. In addition, patient had a white count of 18.4 with a left shift (neutrophil percentage of 89%) with total and direct hyperbilirubinemia (T bili 1.2, D bili 0.5). Liver enzymes were unremarkable, as was a urine analysis, and hepatitis panel was negative for hep B or hep C. As far as imaging, the ED provider ordered a right upper quadrant ultrasound in the setting of the elevated bilirubin which revealed fatty liver. A chest x-ray was done and was unremarkable for any acute process. Patient was given both Tylenol and ibuprofen in the ED as well as 1 dose of ceftriaxone and IV fluids. Patient was subsequently admitted under the care of the hospitalist service to the medical surgical floor primarily for work-up of fever with unknown etiology, leukocytosis and positive SIRS criteria with unknown source. Patient verbally confirms in the ED that he is full code. Patient also states he would like any updates to be first communicated to his girlfriend, Nurys Gaxiola ([phone]). HOSPITAL COURSE: Upon admission, CT chest and CT abdomen pelvis were ordered to continue work-up for fever of unknown etiology as only a chest x-ray and right upper quadrant ultrasound had previously been ordered in the ED. CT chest showed opacities in the right middle, right lower, and left lower lobes that were read as consistent with multifocal pneumonitis. This may represent an acute pneumonitis due to his extensive exposures last week working underneath a mobile home versus acute pneumonia likely also related to recent occupational exposures versus chronic pneumonitis secondary to long-term occupational exposure at tape factory, sanding, etc. CT abdomen pelvis reviewed again showed multifocal lung opacities with perinephric inflammation, and small left inguinal hernia with inflammation (was unremarkable on physical exam). Procalcitonin was as elevated at 0.51, and systemic inflammatory markers (ESR and CRP) were also elevated. A peripheral smear was done showing leukocytosis with morphologically unremarkable mature neutrophils and occasional bands with no atypical lymphocytes or blasts identified. In the setting of patient's leukocytosis and elevated procalcitonin with multifocal opacity, inflammatory process presumed 2/2 bacterial source, and a 7-day course of oral levofloxacin was initiated. Extensive laboratory work-up beyond what was begun in the ED continued with sputum culture and GI panel. Respiratory viral panel have been negative in the ED and initial blood cultures showed no growth after 24 hours. Lyme serology, atypical pneumonia sources, EBV, CMV, HIV, HBV, HCV all ordered and were either negative or pending at time of patient discharge. The infectious disease service was consulted, and, upon hearing the patient's story and recent occupational exposures, recommended ordering cryptococcus, histoplasma, and aspergillosis as well as repeating Covid test as patient is not vaccinated. Infectious disease service recommended that if patient remained stable, he could be discharged and follow-up within a week as an outpatient. Specific to the patient's fever, both Tylenol and ibuprofen were alternated and helped to control temperatures through most the day, although he never completely defervesced as morning temperatures remain elevated. He continued to have some associated night sweats, although they did steadily improve over the course of his stay. The first overnight, he had some nausea and one episode of emesis and subsequently as needed Zofran was initiated. After the addition of Zofran, patient's nausea was well controlled. Ultimately, as leukocytosis continued to improve and patient remained stable, he was discharged with instructions to follow-up within 3 to 5 days with both his primary care physician and the infectious disease service (Dr. Matthews). He was advised to continue alternating Tylenol and ibuprofen for the persistent fevers. He was also given a prescription for 5 days of levofloxacin to complete 7 days total (had had 2 days worth in the hospital). LABORATORY DATA: Please see below. IMAGING: Right upper quadrant/gallbladder ultrasound, 09/13/20 FINDINGS: The gallbladder demonstrates no evidence of intraluminal sludge or calculi, wall thickening or pericholecystic fluid. There is no intrahepatic or extrahepatic biliary dilatation, common bile duct measures 4 mm in maximum diameter. There is diffuse heterogeneous increased echotexture of the liver compatible w ith diffuse fibrofatty infiltration. Pancreas is not optimally visualized due to overlying bowel gas, particularly in the region of the pancreatic tail, but the visualized portions are grossly unremarkable. The right kidney demonstrates no hydronephrosis, with a normal size of 12.3 cm in length. There is a cyst in the lower pole the right kidney 5 mm in diameter. No free fluid is seen. IMPRESSION: Diffuse fibrofatty infiltration of the liver. Subcentimeter cyst right kidney. Otherwise negative right upper quadrant ultrasound. 2 view (posterior anterior, lateral) Chest x-ray, 09/13/20 FINDINGS: Lungs: Clear, no infiltrate. Heart: Normal in size. Mediastinum: Mediastinal silhouette unremarkable. Pleural angles: Unremarkable.. Bones and soft tissues: Unremarkable. IMPRESSION: No acute pulmonary disease. CT abdomen pelvis without contrast, 09/13/2020 FINDINGS: Lungs: Semi-solid parenchymal infiltrates in the right middle, right and left lower lobes. Findings consistent with multifocal pneumonitis of any etiology. Liver: Normal. No mass. Gallbladder and bile ducts: Normal. No calcified stones. No ductal dilation. Pancreas: Normal. No ductal dilation. Spleen: Normal. No splenomegaly. Adrenal glands: There is bilateral adrenal hyperplasia. Kidneys and ureters: Inflammatory changes demonstrated in both perinephric spaces, a finding which may be chronic. Clinical correlation to exclude acute and inflammation/infection suggested. Stomach and bowel: Mild diverticulosis is present in the distal colon. No diverticulitis. Appendix: No evidence of appendicitis. Intraperitoneal space: Unremarkable. No free air. No significant fluid collection. Vasculature: Unremarkable. No abdominal aortic aneurysm. Lymph nodes: Unremarkable. No enlarged lymph nodes. Urinary bladder: Unremarkable as visualized. Reproductive: The prostate gland demonstrates moderate hyperplasia. Bones/joints: Mild central spinal stenosis L3-L4, [id number] central spinal stenosis L4-L5. Bulging annulus L5-S1 without neural compromise. Soft tissues: Small left inguinal hernia with surrounding inflammation. Clinical correlation to exclude incarceration suggested. IMPRESSION: 1. Semi-solid parenchymal infiltrates in the right middle, right and left lower lobes. Findings consistent with multifocal pneumonitis of any etiology. 2. There is bilateral adrenal hyperplasia. 3. Inflammatory changes demonstrated in both perinephric spaces, a finding which may be chronic. Clinical correlation to exclude acute and inflammation/infection suggested. 4. Moderate prostatic hyperplasia. 5. Mild diverticulosis is present in the distal colon. No diverticulitis. 6. Small left inguinal hernia with surrounding inflammation. Clinical correlation to exclude incarceration suggested. CT chest without contrast, 09/13/2020 FINDINGS: Lungs: Semi-solid and solid parenchymal opacities demonstrated in the central part of the right middle lobe, medial basilar segment and posterior segments of the right lower lobe, posteromedial basal segments of the left lower lobe. Findings most consistent with multifocal pneumonitis. Remaining lungs appear clear. Pleural spaces: Mild pleural thickening both lung bases. Heart: Unremarkable. No cardiomegaly. No pericardial effusion. Aorta: Unremarkable. No aortic aneurysm. Lymph nodes: Unremarkable. No enlarged lymph nodes. Bones/joints: The spine demonstrates mild degenerative changes. Soft tissues: Unremarkable. IMPRESSION: Semi-solid and solid parenchymal opacities demonstrated in the central part of the right middle lobe, medial basilar segment and posterior segments of the right lower lobe, posteromedial basal segments of the left lower lobe. Findings most consistent with multifocal pneumonitis. PROGNOSIS: Good ACTIVITY: As tolerated DIET: As tolerated/regular DISPOSITION: 01 Home, Self-Care. DISCHARGE INSTRUCTIONS & ITEMS TO FOLLOWUP ON ON OUTPATIENT: -Please follow-up with the infectious disease service (Dr. Matthews) within the next 3 to 5 days for an outpatient appointment. -Please follow-up with your primary care physician at the [facility] (Dr. Summers) in the next 3 to 5 days. Please take five more days of the antibiotic levofloxacin (Levaquin). Take one 750 mg oral tablet once a day from . The prescription will be sent to your pharmacy. Please alternate taking Tylenol and ibuprofen as needed for your fever; may take Tylenol, then ibuprofen 3 hours later, then Tylenol again 3 hours later, then ibuprofen again 3 hours later and so on as needed for fever. Can take up to 600 mg of ibuprofen in a single dosing not to exceed more than 2400 mg daily. Please ensure that you take ibuprofen with food and/or milk, and not an empty stomach. Should presenting symptoms acutely worsen and/or recur, please return the emergency department or contact your primary care provider. Please comply with the above treatment plan. Thank you for the opportunity to participate in your care. DISCHARGE CONDITION: Stable TIME SPENT ON DISCHARGE: 37 minutes Vital Signs/I&Os Vital Signs Date Time Temp Pulse Resp B/P (MAP) Pulse Ox O2 Delivery O2 Flow Rate FiO2 09/15/20 07:15 97.8 09/15/20 06:00 89 21 124/70 (88) 94 Room Air I&O- Last 24 Hours up to 6 AM 09/15/20 06:00 Intake Total 1670 ml Output Total 450 ml Balance 1220 ml Laboratory Data Labs 24H Laboratory Tests 2 09/14/20 21:36: Coronavirus (COVID-19)(PCR) NEGATIVE, Influenza Type A (RT-PCR) NEGATIVE, Influenza Type B (RT-PCR) NEGATIVE, Respiratory Syncytial Virus (PCR) NEGATIVE 09/15/20 05:42: 09/15/20 06:36: Immature Granulocyte % (Auto) 0.5, Neutrophils (%) (Auto) 90.2H, Lymphocytes (%) (Auto) 3.4L, Monocytes (%) (Auto) 5.8, Eosinophils (%) (Auto) 0.0, Basophils (%) (Auto) 0.1, Neutrophils # (Auto) 10.9H, Lymphocytes # (Auto) 0.4L, Monocytes # (Auto) 0.7, Eosinophils # (Auto) 0.0, Basophils # (Auto) 0.0, Nucleated Red Blood Cells % (auto) 0.0, Anion Gap 9, Glomerular Filtration Rate > 60.0, Calcium Level 8.8, Total Bilirubin 0.7, Aspartate Amino Transf (AST/SGOT) 35, Alanine Aminotransferase (ALT/SGPT) 36, Alkaline Phosphatase 72, Total Protein 5.7L, Albumin 2.5L, Albumin/Globulin Ratio 0.8 09/15/20 07:44: 09/15/20 10:17: Coronavirus (COVID-19)(PCR) NEGATIVE CBC/BMP Laboratory Tests 09/15/20 06:36 Microbiology Microbiology 09/15/20 Gram Stain - Final, Complete 09/15/20 Sputum Culture - Final, Complete 09/14/20 Gastrointestinal Tract Panel (PCR) - Final, Complete 09/13/20 Blood Culture - Preliminary, Resulted No Growth after 48 hours. All Specime... 09/13/20 Blood Culture - Preliminary, Resulted No Growth after 48 hours. All Specime... 09/13/20 Respiratory Virus Panel (PCR) (SIRIA) - Final, Complete Discharge Medications Scheduled Acyclovir (Acyclovir) 400 Mg Tablet, 400 MG PO DAILY, (Reported) Ascorbic Acid (Vitamin C) 500 Mg Capsule, 500 MG PO DAILY, (Reported) Aspirin (Aspirin EC) 81 Mg Tablet.dr, 81 MG PO DAILY, (Reported) Atorvastatin Calcium (Atorvastatin Calcium) 20 Mg Tablet, 20 MG PO DAILY, (Reported) Cholecalciferol (Vitamin D3) (Vitamin D3) 1,000 Unit Tablet, 1,000 UNITS PO DAILY, (Reported) Levofloxacin (Levofloxacin) 750 Mg Tablet, 750 MG PO DAILY@06 Multivitamins (Thera M Plus Tablet) 1 Each Tablet, 1 TAB PO DAILY, (Reported) Hometown-3/Dha/Epa/Fish Oil (Fish Oil 1,000 mg Softgel) 1 Each Capsule, 1 CAP PO BID, (Reported) Allergies Coded Allergies: No Known Allergies (Unverified , 09/13/20) GME ATTESTATION My faculty preceptor for this patient encounter was physically present during the encounter and was fully available. All aspects of the patient interview, examination, medical decision making process, and medical care plan development were reviewed and approved by the faculty preceptor. The faculty preceptor is aware and concurs with the plan as stated in the body of this note and will attest to such by his/her cosignature. ATTENDING NOTE I personally examined the patient and discussed her findings and plan with the resident team and noted above. We discussed his finding with Dr. Matthews who recommended home discharge with a course of levaquin with close follow up with her with ongoing infectious workup. JATIN DELGADO D.O. Sep 15, 2020 19:21 NOAH HILL MD Sep 17, 2020 08:06
[2020-09-16 20:10] LABS: CMV QUANT DNA PCR (PLASMA) Negative (Negative)
[2020-09-17] MEDS ORDERED: ASPIRIN 81MG ENTERIC TABLET PO SCH (10:00)
[2020-09-17 13:08] LABS: BODY FLUID CULTURE Not indicated. (.); ORGANISM ID Not indicated. (.); SPECIMEN SOURCE Urine (.); URINE STREP PNEUMONIAE ANTIGEN Negative (Negative)
[2020-09-17 14:09] LABS: LEGIONELLA ANTIGEN URINE Positive (Negative)
== END 2020-09-15 13:50 | disposition home or self-care (01) | DRG 195 ==
LOC: M ED 10:13 → M ED INP 15:34 → ENRESERV 21:00 → M MS5PR 23:20
PROVIDERS: ADMIT Internal Medicine; ATTEND Internal Medicine
DX: J18.9 Pneumonia, unspecified organism (principal); K76.0 Fatty (change of) liver, not elsewhere classified; E87.6 Hypokalemia; E80.6 Other disorders of bilirubin metabolism; E78.5 Hyperlipidemia, unspecified; B00.9 Herpesviral infection, unspecified; M47.896 Other spondylosis, lumbar region; Z20.822 Contact with and (suspected) exposure to COVID-19; Z79.899 Other long term (current) drug therapy; R50.9 Fever, unspecified; D72.829 Elevated white blood cell count, unspecified